=== PATIENT | female | born 1990 | race Caucasian/White ===

== ENCOUNTER 2020-04-01 20:36 | Emergency (ER) | payer SELFPAY ==
[2020-04-01 20:38] VITALS: BP 107/66; PULSE 95; RESP 20; TEMP 36.8; O2SAT 100; BMI 27.3
--- NOTE | 2020-04-01 20:41 | CTR_ITS ---
PROCEDURE INFORMATION: Exam: CT Head Without Contrast Exam date and time: 04/01/2020 8:41 PM Age: 30 years old Clinical indication: Alteration of consciousness and weakness, extremity and weakness, facial and other: Stroke symptons; Bilateral; Additional info: Stroke-like symptoms TECHNIQUE: Imaging protocol: Computed tomography of the head without contrast. Radiation optimization: All CT scans at this facility use at least one of these dose optimization techniques: automated exposure control; mA and/or kV adjustment per patient size (includes targeted exams where dose is matched to clinical indication); or iterative reconstruction. Other technique: STROKE PROTOCOL was implemented. COMPARISON: No relevant prior studies available. RADIATION DOSE METRICS: Total DLP (mGy-cm): 862.49 FINDINGS: Brain: There is a large right frontal acute hemorrhage. It measures 4.6 x 3.9 x 5.2 cm. This is a volume of 25 cc. There is surrounding edema. There is mass effect with 5 mm of midline shift. No extra-axial hematoma. No subarachnoid hemorrhage. No infarct. Cerebral ventricles: No ventriculomegaly. Bones/joints: Unremarkable. No acute fracture. Paranasal sinuses: There is near complete opacification of the right maxillary sinus. Mastoid air cells: Visualized mastoid air cells are well aerated. Soft tissues: Unremarkable. CT/CT head wo con* [id number] IMPRESSION: 4.6 x 3.9 x 5.2 cm acute right frontal hemorrhage with 5 mm of midline shift. ASSESSMENT: ASPECTS ([place] Stroke Program Early CT Score) is 10. Radiation Dose CTDIVOL = (mGy): DLP = 862.49 (mGy-cm)
--- NOTE | 2020-04-01 20:54 | PC.NURSE ---
EKG done at 2023 and shown to ER doctor. Blood glucose is 189, nurses and ER doc were notified
[2020-04-01 20:56] LABS: Glucose Point of Care 189 mg/dL (70-110)
--- NOTE | 2020-04-01 20:57 | XRR_ITS ---
PROCEDURE INFORMATION: Exam: XR Chest, 1 View Exam date and time: 04/01/2020 9:17 PM Age: 30 years old Clinical indication: Shortness of breath; Patient HX: AMS, LUNA, SOB, numbness on left hand/leg TECHNIQUE: Imaging protocol: XR of the chest Views: 1 view. COMPARISON: No relevant prior studies available. FINDINGS: Lungs: The lungs are clear bilaterally. Pulmonary vasculature within normal limits. Pleural space: No visible pneumothorax or pleural effusion. Heart/Mediastinum: Cardiomediastinal silhouette contour within normal limits. Bones/joints: No emergent findings identified. XR/XR chest 1V portable [id number] IMPRESSION: 1. No radiographic findings of acute cardiopulmonary disease.
--- NOTE | 2020-04-01 20:58 | ECG_ITS ---
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 Measurements Intervals [place] Rate: 82 P: 45 KS: 140 QRS: 29 QRSD: 98 T: 14 QT: 409 QTc: 479 Interpretive Statements SINUS RHYTHM No previous ECG available for comparison Electronically Signed On 04-02-2020 17:00:56 CDT by Pierce Wagner M.D. [id number]
[2020-04-01 21:04] VITALS: BP 120/73; PULSE 93; RESP 15; O2SAT 100
--- NOTE | 2020-04-01 21:14 | W.ED.NEUROSD ---
HPI - Neuro Symptoms/Deficit General: Chief Complaint: Neuro Symptoms/Deficit Stated Complaint: stroke Time Seen by Provider: 04/01/20 20:41 History of Present Illness: HPI Narrative: 30-year-old female presenting with a last known well time or somewhere around 1715. She presents with sudden onset of left-sided weakness, trouble with speech, slurring speech, and ataxia. She vomited as well. She is on no blood thinners. She does not have a previous history of stroke. Onset (ago): hour(s) Last Observed Normal: 17:15 Timing confirmed by: spouse Location: speech, left face, left arm, left leg and ataxia History of same: No Severity: moderate Quality: weak and numb Context: sudden onset On Anticoagulants: No Associated symptoms: Reports headache(s), nausea and vomiting; Deny chest pain or seizures Review of Systems Const: Denies: fever(s) or chills ENMT: Denies: odynophagia, swelling of lips/tongue or sinus pain Card: Denies: chest pain, palpitations or irregular heart rhythm Resp: Denies: dyspnea, productive cough, non-productive cough or wheezing GI: Reports: nausea and vomiting : Denies: dysuria or hematuria Musc: Denies: neck pain or back pain Skin/Breast: Denies: rash or erythema Neuro: Reports: headache(s) and dizziness; Denies: confusion or seizure-like activity Psych: Denies: anxiety Physical Exam Const: GENERAL APPEARANCE: well developed ORIENTATION/CONSCIOUSNESS: Yes oriented to person, Yes oriented to place and Yes oriented to time HENMT: COMMON NORMALS: external ears normal and Normal external nose present HEAD & SCALP: no scalp tenderness NOSE: Normal external nose present and No nasal discharge present EXTERNAL EAR: Yes external ears normal Eye: COMMON NORMALS: Equal, round and reactive pupils present, EOMs intact bilaterally and conjunctivae normal EYELID: eyelids normal CONJUNCTIVA: Yes conjunctivae normal PUPIL: Yes Equal, round and reactive pupils present Neck/C-Spine: GENERAL: No tracheal deviation Chest: COMMONS NORMALS: normal inspection of the chest CHEST: No tenderness Resp: COMMON NORMALS: clear to auscultation bilaterally EFFORT & INSPECTION: No tachypneic, No respiratory distress, No retractions, No uses accessory muscles and No tracheal deviation AUSCULTATION: clear to auscultation bilaterally, no rhonchi, no wheezes and lung sounds not diminished Cardio: COMMON NORMALS: regular rate and regular rhythm RATE: regular rate RHYTHM: regular rhythm HEART SOUNDS: no murmurs PERIPHERAL PULSES: radial pulses present GI: INSPECTION: No abdominal distension AUSCULTATION: No Hyperactive bowel sounds present and No Hypoactive bowel sounds present PALPATION: No Guarding due to palpation present (GI) and No Rigid due to palpation PERCUSSION: no dullness to percussion and no tympanic to percussion Neuro: SENSORIUM/ORIENTATION: Yes oriented to person, Yes oriented to place and Yes oriented to time SPEECH: abnormal speech Details: slurred and expressive aphasia GAIT: Yes Unable to assess gait SENSORY EXAM: Yes extremities (Left upper and lower extremity sensory loss.) MOTOR EXAM: Pronator motor function present (Left) Psych: COMMON NORMALS: mental status grossly normal Skin: COMMON NORMALS: no rashes or lesions noted GENERAL SKIN EXAM: no rashes or lesions noted Course Vital Signs: Vital signs: Vital Signs Temperature 98.2 F 04/01/20 20:38 Pulse Rate 79 04/01/20 21:58 Respiratory Rate 27 H 04/01/20 21:58 Blood Pressure 129/73 04/01/20 21:58 Pulse Oximetry 100 04/01/20 21:58 MDM - Neuro Symptoms/Deficit MDM Narrative: Medical decision making narrative: Patient presents with sudden onset of neurologic symptoms. She has no history of anticoagulation, or stroke prior. She has a large intracranial hemorrhage in the right frontal area with some midline shift. We have contacted both [facility] and [facility] in [place], who were not excepting any outside transfers. We next contacted [facility] and I spoke with neurosurgery there. We are awaiting to see if they have a bed available for this patient currently she is conscious and awake. He is answering questions still. Her blood pressure is 120/83, heart rate 80, saturations 100%, respirations 22. Lab Data: Labs: Lab Results 04/01/20 04/01/20 04/01/20 Range/Units 20:53 21:05 21:05 WBC 14.0 H (4.0-10.0) 10^3/ uL RBC 4.53 (4.1-5.3) 10^6/u L Hgb 12.8 (11.5-15.3) g/dL Hct 38.9 (37.0-47.0) % MCV 85.9 (81-99) fL MCH 28.3 (28.0-34.0) pg MCHC 32.9 (30.0-36.0) g/dL RDW 12.3 (12.1-15.1) % Plt Count 266 (130-400) 10^3/c mm MPV 11.6 H (7.4-10.4) fL Neut % (Auto) 75.1 % Lymph % (Auto) 17.8 % [place] % (Auto) 4.5 % Eos % (Auto) 1.8 % Baso % (Auto) 0.3 % Neut # (Auto) 10.54 H (1.8-7.7) 10^3/u L Lymph # (Auto) 2.5 (0.8-4.8) 10^3/u L [place] # (Auto) 0.6 (0.2-0.9) 10^3/u L Eos # (Auto) 0.3 (0.0-0.8) 10^3/u L Baso # (Auto) 0.0 (0.0-0.1) 10^3/u L Nucleated RBC % (a uto) 0 % Nucleated RBCs # 0.0 /100WBC PT 12.70 (12.1-14.9) SECO NDS INR 0.93 (0.8-1.2) APTT 29.1 (23.9-36.7) SECO NDS Sodium (136-145) mmol/L Potassium (3.5-5.1) mmol/L Chloride (98-107) mmol/L Carbon Dioxide (22-29) mmol/L Anion Gap (5-19) BUN (6-20) mg/dL Creatinine (0.5-0.9) mg/dL GFR Calculation (90-130) mL/min Glucose (65-115) mg/dL POC Glucose 189 (70-110) mg/dL Calculated Osmolal ity (285-295) mOsm/k g Calcium (8.5-10.5) mg/dL Total Bilirubin (0.15-1.2) mg/dL AST (0-32) U/L ALT (0-33) U/L Alkaline Phosphata se (35-105) IU/L Total Protein (6.6-8.7) g/dL Albumin (3.5-5.2) g/dL Globulin (1.3-4.6) g/dL 04/01/20 Range/Units 21:05 WBC (4.0-10.0) 10^3/ uL RBC (4.1-5.3) 10^6/u L Hgb (11.5-15.3) g/dL Hct (37.0-47.0) % MCV (81-99) fL MCH (28.0-34.0) pg MCHC (30.0-36.0) g/dL RDW (12.1-15.1) % Plt Count (130-400) 10^3/c mm MPV (7.4-10.4) fL Neut % (Auto) % Lymph % (Auto) % [place] % (Auto) % Eos % (Auto) % Baso % (Auto) % Neut # (Auto) (1.8-7.7) 10^3/u L Lymph # (Auto) (0.8-4.8) 10^3/u L [place] # (Auto) (0.2-0.9) 10^3/u L Eos # (Auto) (0.0-0.8) 10^3/u L Baso # (Auto) (0.0-0.1) 10^3/u L Nucleated RBC % (a uto) % Nucleated RBCs # /100WBC PT (12.1-14.9) SECO NDS INR (0.8-1.2) APTT (23.9-36.7) SECO NDS Sodium 137 (136-145) mmol/L Potassium 3.2 L (3.5-5.1) mmol/L Chloride 101 (98-107) mmol/L Carbon Dioxide 21 L (22-29) mmol/L Anion Gap 18.2 (5-19) BUN 15 (6-20) mg/dL Creatinine 0.7 (0.5-0.9) mg/dL GFR Calculation 97.6 (90-130) mL/min Glucose 200 H (65-115) mg/dL POC Glucose (70-110) mg/dL Calculated Osmolal ity 290 (285-295) mOsm/k g Calcium 9.2 (8.5-10.5) mg/dL Total Bilirubin 0.2 (0.15-1.2) mg/dL AST 18 (0-32) U/L ALT 17 (0-33) U/L Alkaline Phosphata se 79 (35-105) IU/L Total Protein 7.5 (6.6-8.7) g/dL Albumin 4.5 (3.5-5.2) g/dL Globulin 3.0 (1.3-4.6) g/dL Discharge Plan Discharge Patient Disposition: Xfer Other Clinical Impression: Hemorrhagic stroke Interventions: ED Discharge Assessment Last Done: 04/01/20 21:58 ED Charges Last Done: 04/01/20 21:58 Discharge Date/Time: 04/01/20 22:04 Coding Level of Care Code ED Orthopedic Brace Maker for Antonia Fwd Exam Comprehensive
[2020-04-01 21:24] LABS: Basophils % 0.3 %; Eosinophils # 0.3 10^3/uL (0.0-0.8); Eosinophils % 1.8 %; Hematocrit 38.9 % (37.0-47.0); Hemoglobin 12.8 g/dL (11.5-15.3); Lymphocytes # 2.5 10^3/uL (0.8-4.8); Lymphocytes % 17.8 %; Mean Corpuscular HGB Conc 32.9 g/dL (30.0-36.0); Mean Corpuscular Hemoglobin 28.3 pg (28.0-34.0); Mean Corpuscular Volume 85.9 fL (81-99); Mean Platelet Volume 11.6 fL (7.4-10.4); Monocytes # 0.6 10^3/uL (0.2-0.9); Monocytes % 4.5 %; Neutrophils # 10.54 10^3/uL (1.8-7.7); Neutrophils % 75.1 %; Nucleated Red Blood Cells % 0 %; Platelet Count 266 10^3/cmm (130-400); Red Blood Count 4.53 10^6/uL (4.1-5.3); Red Cell Distribution Width 12.3 % (12.1-15.1)
[2020-04-01 21:30] LABS: INR 0.93 (0.8-1.2); Partial Thromboplastin Time 29.1 SECONDS (23.9-36.7)
[2020-04-01 21:31] VITALS: BP 129/73; PULSE 79; RESP 27; O2SAT 100
[2020-04-01 21:37] LABS: Alanine Aminotransferase 17 U/L (0-33); Albumin Level 4.5 g/dL (3.5-5.2); Alkaline Phosphatase 79 IU/L (35-105); Anion Gap 18.2 (5-19); Aspartate Amino Transferase 18 U/L (0-32); Blood Urea Nitrogen 15 mg/dL (6-20); Calcium 9.2 mg/dL (8.5-10.5); Carbon Dioxide 21 mmol/L (22-29); Chloride 101 mmol/L (98-107); Glomerular Filtration Rate 97.6 mL/min (90-130); Glucose 200 mg/dL (65-115); Osmolality Calculated 290 mOsm/kg (285-295); Potassium 3.2 mmol/L (3.5-5.1); Sodium 137 mmol/L (136-145); Total Bilirubin 0.2 mg/dL (0.15-1.2); Total Protein 7.5 g/dL (6.6-8.7)
[2020-04-01 21:58] VITALS: BP 129/73; PULSE 79; RESP 27; O2SAT 100
== END 2020-04-01 22:04 | disposition other institution (70) ==
LOC: ER 20:54
PROVIDERS: Family Medicine; Emergency Provider Emergency Medicine
DX: I62.9 Nontraumatic intracranial hemorrhage, unspecified (principal)
CPT/HCPCS: 12345; 36416; 51702; 70450; 71045; 80053; 82962; 85025; 85610; 85730; 93005; 99283; 99285

== ENCOUNTER 2020-04-14 20:40 | Emergency (ER) | payer MEDICAID, SELFPAY ==
[2020-04-14 20:45] VITALS: BP 141/96; PULSE 113; RESP 18; O2SAT 98; BMI 26.4
--- NOTE | 2020-04-14 20:45 | CTR_ITS ---
PROCEDURE INFORMATION: Exam: CT Head Without Contrast Exam date and time: 04/14/2020 8:46 PM Age: 30 years old Clinical indication: Pain; Headache; Prior surgery TECHNIQUE: Imaging protocol: Computed tomography of the head without contrast. Radiation optimization: All CT scans at this facility use at least one of these dose optimization techniques: automated exposure control; mA and/or kV adjustment per patient size (includes targeted exams where dose is matched to clinical indication); or iterative reconstruction. COMPARISON: CT head wo con* [id number] 04/01/2020 8:33 PM RADIATION DOSE METRICS: Total DLP (mGy-cm): 1366.9 FINDINGS: Brain: The previously identified parenchymal hemorrhage centered within the right parietal lobe has been partially evacuated and measures 2.3 x 4.5 x 2.5 cm. Severe vasogenic edema in the right parietal, posterior frontal, and superior temporal lobe, surrounding the hemorrhage, is not significantly changed. Persistent right sulcal effacement. 5 mm right to left subfalcine shift. No tonsillar herniation. Small subdural fluid collection along the craniotomy defect measuring up to 3.5 mm. Cerebral ventricles: No ventriculomegaly. Bones/joints: Right parietal craniotomy defect with plates and screws. Paranasal sinuses: Opacification of the right maxillary sinus. Otherwise clear. Mastoid air cells: Visualized mastoid air cells are well aerated. Soft tissues: Unremarkable. CT/CT head wo con* [id number] IMPRESSION: 1. Interval craniotomy with partial evacuation of the right parietal lobe parenchymal hemorrhage. No evidence to suggest acute rehemorrhage. 2. Persistent vasogenic edema surrounding the hemorrhage which contributes to right hemispheric sulcal effacement and 5 mm right to left subfalcine shift. 3. Small subdural fluid collection along the right craniotomy defect measuring 3.5 mm in thickness. Radiation Dose CTDIVOL = (mGy): DLP = 1366.9 (mGy-cm)
--- NOTE | 2020-04-14 20:51 | PC.NURSE ---
patient taken directly to CT scan
--- NOTE | 2020-04-14 20:53 | ED_ITS ---
HPI - General Adult General: Chief complaint: Neuro Symptoms/Deficit Stated complaint: poss stroke Time Seen by Provider: 04/14/20 20:45 Source: patient and family Mode of arrival: wheelchair Limitations: no limitations History of Present Illness: HPI narrative: Dee Dee is a 30-year-old female who comes in complaining of left arm numbness, slurred speech and a severe headache. Patient is in significant discomfort and most of history is obtained from her . He states that approximately 515 she had a headache that started gradually and has become progressively worse. Shortly after the headache started she described left hand and arm numbness and he noticed slurred speech. The patient then became nauseated and dizzy and has vomited. He gave her Tylenol for her headache and her nighttime seizure medications but this was vomited up as well. Of note the patient had an intraparenchymal brain hemorrhage at the end of March and was treated and cared for with dec ompression surgery at the [facility]. Here the patient has a GCS of 13 but does follow commands. Associated symptoms: Reports headache(s), nausea and vomiting; Deny chest pain, confusion, diaphoresis, dyspnea, malaise, rash, palpitations or syncope Review of Systems Const: Denies: fever(s), chills, body aches, fatigue, malaise or diaphoresis Eyes: Denies: change in vision, blurry vision, photophobia, eye discomfort, eye discharge, eye redness or yellow eyes ENMT: Denies: throat pain, odynophagia, hoarseness, swelling of lips/tongue, ear or mastoid pain, ear discharge, change in hearing or nasal discharge Card: Denies: chest pain, palpitations, irregular heart rhythm, edema, lightheadedness, syncope, pre-syncope, dyspnea on exertion or orthopnea Resp: Denies: dyspnea, productive cough, non-productive cough, wheezing, hemoptysis or chest congestion GI: Reports: nausea and vomiting; Denies: abdominal pain, hematemesis, coffee ground emesis, heartburn, diarrhea, constipation, GI cramping, hematochezia or melena : Denies: flank pain, dysuria, urinary frequency, urinary urgency or hematuria Musc: Denies: neck pain, back pain, extremity pain, extremity swelling, joint pain, joint swelling, joint redness, joint warmth or joint stiffness Skin/Breast: Denies: rash, pruritus, erythema, skin pain or skin tenderness Neuro: Reports: headache(s) and dizziness; Denies: numbness in extremities, weakness in extremities, sensory changes, lack of coordination, difficulty walking, vertigo, confusion, Slurred speech present or seizure-like activity David/Lymph: Denies: easy bruising, easy bleeding, petechiae, purpura or enlarged lymph nodes All/Imm: Denies: urticaria, throat swelling, tongue swelling, facial swelling or acute wheezing PFSH ED PFSH: Medical History (Updated 04/14/20 @ 21:16 by Heather Zurita) Intracranial hemorrhage Surgical History (Updated 04/14/20 @ 21:15 by Heather Zurita) S/P brain surgery Social History (Updated 04/14/20 @ 21:15 by Heather Zurita) Smoking and tobacco status: never smoked Alcohol intake: never Substance/Drug Use: never Female Reproductive History: Date of last menstrual period: 03/30/20 Physical Exam Const: COMMON NORMALS: patient oriented x3 and alert GENERAL APPEARANCE: cooperative and in distress (Appears a secondary to pain) HENMT: COMMON NORMALS: normocephalic, atraumatic, external ears normal, EAC's normal and Normal external nose present HEAD & SCALP: normal to inspection, normocephalic and atraumatic FACE & SINUS: normal facial exam and face symmetric NOSE: Normal external nose present and Normal nares present EXTERNAL EAR: Yes external ears normal EXTERNAL AUDITORY CANAL: EAC's normal MOUTH: Normal oral and palatal mucosa present, lip normal and tongue normal Eye: COMMON NORMALS: Equal, round and reactive pupils present and conjunctivae normal GENERAL EYE: appearance normal, both eyes and all related structures ALIGNMENT: Yes alignment normal PERIORBITAL: periorbital findings normal EYELID: eyelids normal CONJUNCTIVA: Yes conjunctivae normal SCLERA: sclerae normal PUPIL: Yes Equal, round and reactive pupils present Neck/C-Spine: COMMON NORMALS: full ROM, no lymphadenopathy, supple, no meningeal signs and no JVD GENERAL: Yes normal visual inspection and Yes trachea midline Chest: COMMONS NORMALS: normal inspection of the chest and normal palpation of entire chest wall Resp: COMMON NORMALS: normal respiratory effort, No retractions, No use of accessory muscles and clear to auscultation bilaterally EFFORT & INSPECTION: Yes able to speak in complete sentences and Yes symmetric chest movement AUSCULTATION: clear to auscultation bilaterally, no crackles, no rales, no rhonchi and no wheezes Cardio: COMMON NORMALS: no JVD, regular rate, regular rhythm, S1 normal heart sound present and S2 normal heart sound present RATE: regular rate RHYTHM: regular rhythm HEART SOUNDS: S1 normal heart sound present, S2 normal heart sound present, no click, no gallops, no murmurs and no rubs GI: COMMON NORMALS: Soft to palpation and No hepatosplenomegaly present PALPATION: Yes Soft to palpation, No Tenderness to palpation present (GI), No Guarding due to palpation present (GI), No Rigid due to palpation, Yes No hepatosplenomegaly present, No Hernia present, No Palpable mass present and No Pulsatile mass present : COMMON NORMALS: Yes no CVA tenderness BLADDER/KIDNEY EXAM: Yes no CVA tenderness EXTERNAL FEMALE EXAM: No Hernia present Back/Pelvis: COMMON NORMALS: no CVA tenderness, thoracic and lumbar spine normal to inspection, no thoracic nor lumbar tenderness and thoraco-lumbar ROM normal Extremity: COMMON NORMALS: normal to inspection, full ROM, capillary refill normal, no joint enlargement, no clubbing, cyanosis or edema and no calf tenderness Neuro: HEENA COMA SCALE: document GCS findings [place] coma scale eye opening: To sound Heena coma scale verbal response: Confused Heena coma scale motor response: Obey commands Heena coma scale total score: 13 COMMON NORMALS: patient oriented x3, CN's II-XII intact bilaterally, moves all extremities, no focal motor deficits and no sensory deficits noted SENSORIUM/ORIENTATION: Yes alert MENINGEAL SIGNS: Yes no meningeal signs SPEECH: speech normal Psych: COMMON NORMALS: mental status grossly normal, Normal thought process present, cooperative, normal affect, speech normal and activity/motor behavior normal SPEECH: Yes normal speech THOUGHT PROCESS: Normal thought process present Skin: COMMON NORMALS: no rashes or lesions noted, turgor normal, no jaundice, no petechiae and no mottling GENERAL SKIN EXAM: no rashes or lesions noted and turgor normal Course Vital Signs: Vital signs: Vital Signs Pulse Rate 65 04/14/20 22:08 Respiratory Rate 18 04/14/20 22:08 Blood Pressure 137/79 04/14/20 22:08 Pulse Oximetry 100 04/14/20 22:08 MDM - General Adult MDM Narrative: Medical decision making narrative: 2107 -Case reviewed with Dr. Davis at the [facility]. She understands that the blood seen on CT could be old blood from her previous stroke but with the patient's left-sided numbness and slurred speech along with the severe headache and vomiting she agrees that she needs to be evaluated. The plan there will be to rescan her and compared to their old imaging but likely admit for observation for pain control and further evaluation and care. I have offered to the family to transfer the patient to [place] at this time I do believe Miguel and Chrystal are on diversion but when this was offered the family declines and wants to go to the [facility] as they were previously treated there. They understand and accept the risks of a longer transport time. Currently [facility] is in route to come shrimp picker the patient. Patient's vital signs are stable and appropriate for intracranial hemorrhage. 2132 - [facility] [place] [facility] [place] [facility]. Patient's official CT read is that of possible subdural along with some vasogenic edema. I have given the patient a dose of Decadron here. There is mild shift. Currently the patient remains a GCS of 13-14. She still has good equal extremity movements. 2139 -Dr. Davis notified of the head CT results. She would like to proceed with the same plan and have the patient shipped to her for further evaluation. Lab Data: Labs: Lab Results 04/14/20 04/14/20 04/14/20 Range/Units 21:07 21:16 21:16 WBC 10.1 H (4.0-10.0) 10^3/ uL RBC 4.02 L (4.1-5.3) 10^6/u L Hgb 11.2 L (11.5-15.3) g/dL Hct 34.7 L (37.0-47.0) % MCV 86.3 (81-99) fL MCH 27.9 L (28.0-34.0) pg MCHC 32.3 (30.0-36.0) g/dL RDW 12.6 (12.1-15.1) % Plt Count 254 (130-400) 10^3/c mm MPV 12.1 H (7.4-10.4) fL Neut % (Auto) 85.8 % Lymph % (Auto) 9.5 % [place] % (Auto) 3.9 % Eos % (Auto) 0.1 % Baso % (Auto) 0.3 % Neut # (Auto) 8.63 H (1.8-7.7) 10^3/u L Lymph # (Auto) 1.0 (0.8-4.8) 10^3/u L [place] # (Auto) 0.4 (0.2-0.9) 10^3/u L Eos # (Auto) 0.0 (0.0-0.8) 10^3/u L Baso # (Auto) 0.0 (0.0-0.1) 10^3/u L Nucleated RBC % (a uto) 0 % Nucleated RBCs # 0.0 /100WBC PT 13.50 (12.1-14.9) SECO NDS INR 1.00 (0.8-1.2) APTT 37.2 H (23.9-36.7) SECO NDS Sodium (136-145) mmol/L Potassium (3.5-5.1) mmol/L Chloride (98-107) mmol/L Carbon Dioxide (22-29) mmol/L Anion Gap (5-19) BUN (6-20) mg/dL Creatinine (0.5-0.9) mg/dL GFR Calculation (90-130) mL/min Glucose (65-115) mg/dL Calculated Osmolal ity (285-295) mOsm/k g Calcium (8.5-10.5) mg/dL Magnesium (1.7-2.3) mg/dL Total Bilirubin (0.15-1.2) mg/dL AST (0-32) U/L ALT (0-33) U/L Alkaline Phosphata se (35-105) IU/L Creatine Kinase (26-192) U/L Total Protein (6.6-8.7) g/dL Albumin (3.5-5.2) g/dL Globulin (1.3-4.6) g/dL HCG, Qual (Negative) SARS-CoV-2 Ag (Rap id) Negative (Negative) 04/14/20 04/14/20 Range/Units 21:16 21:16 WBC (4.0-10.0) 10^3/ uL RBC (4.1-5.3) 10^6/u L Hgb (11.5-15.3) g/dL Hct (37.0-47.0) % MCV (81-99) fL MCH (28.0-34.0) pg MCHC (30.0-36.0) g/dL RDW (12.1-15.1) % Plt Count (130-400) 10^3/c mm MPV (7.4-10.4) fL Neut % (Auto) % Lymph % (Auto) % [place] % (Auto) % Eos % (Auto) % Baso % (Auto) % Neut # (Auto) (1.8-7.7) 10^3/u L Lymph # (Auto) (0.8-4.8) 10^3/u L [place] # (Auto) (0.2-0.9) 10^3/u L Eos # (Auto) (0.0-0.8) 10^3/u L Baso # (Auto) (0.0-0.1) 10^3/u L Nucleated RBC % (a uto) % Nucleated RBCs # /100WBC PT (12.1-14.9) SECO NDS INR (0.8-1.2) APTT (23.9-36.7) SECO NDS Sodium 137 (136-145) mmol/L Potassium 4.2 (3.5-5.1) mmol/L Chloride 102 (98-107) mmol/L Carbon Dioxide 18 L (22-29) mmol/L Anion Gap 21.2 H (5-19) BUN 13 (6-20) mg/dL Creatinine 0.7 (0.5-0.9) mg/dL GFR Calculation 97.6 (90-130) mL/min Glucose 166 H (65-115) mg/dL Calculated Osmolal ity 288 (285-295) mOsm/k g Calcium 9.7 (8.5-10.5) mg/dL Magnesium 1.8 (1.7-2.3) mg/dL Total Bilirubin 0.3 (0.15-1.2) mg/dL AST 13 (0-32) U/L ALT 13 (0-33) U/L Alkaline Phosphata se 104 (35-105) IU/L Creatine Kinase 37 (26-192) U/L Total Protein 8.0 (6.6-8.7) g/dL Albumin 4.2 (3.5-5.2) g/dL Globulin 3.8 (1.3-4.6) g/dL HCG, Qual Negative (Negative) SARS-CoV-2 Ag (Rap id) (Negative) Imaging Data^: CT Head: Radiologist's impression: [address] [address] [address] Scan Report Signed Patient: Celeste Hall #: [id number] : 1990Acct#:[id number] Age/Sex: Date: [birth year] Loc: ERRoom/Bed: Attending Dr: Ordering Provider/Ordering MD: Heather Zurita DO Date of Service: 04/14/20 Procedure(s): CT head wo con* [id number] Accession Number(s): [id number] Report Number: [id number] PROCEDURE INFORMATION: Exam: CT Head Without Contrast Exam date and time: 04/14/2020 8:46 PM Age: 30 years old Clinical indication: Pain; Headache; Prior surgery TECHNIQUE: Imaging protocol: Computed tomography of the head without contrast. Radiation optimization: All CT scans at this facility use at least one of these dose optimization techniques: automated exposure control; mA and/or kV adjustment per patient size (includes targeted exams where dose is matched to clinical indication); or iterative reconstruction. COMPARISON: CT head wo con* [id number] 04/01/2020 8:33 PM RADIATION DOSE METRICS: Total DLP (mGy-cm): 1366.9 FINDINGS: Brain: The previously identified parenchymal hemorrhage centered within the right parietal lobe has been partially evacuated and measures 2.3 x 4.5 x 2.5 cm. Severe vasogenic edema in the right parietal, posterior frontal, and superior temporal lobe, surrounding the hemorrhage, is not significantly changed. Persistent right sulcal effacement. 5 mm right to left subfalcine shift. No tonsillar herniation. Small subdural fluid collection along the craniotomy defect measuring up to 3.5 mm. Cerebral ventricles: No ventriculomegaly. Bones/joints: Right parietal craniotomy defect with plates and screws. Paranasal sinuses: Opacification of the right maxillary sinus. Otherwise clear. Mastoid air cells: Visualized mastoid air cells are well aerated. Soft tissues: Unremarkable. CT/CT head wo con* [id number] IMPRESSION: 1. Interval craniotomy with partial evacuation of the right parietal lobe parenchymal hemorrhage. No evidence to suggest acute rehemorrhage. 2. Persistent vasogenic edema surrounding the hemorrhage which contributes to right hemispheric sulcal effacement and 5 mm right to left subfalcine shift. 3. Small subdural fluid collection along the right craniotomy defect measuring 3.5 mm in thickness. Radiation Dose CTDIVOL = (mGy): DLP = 1366.9 (mGy-cm) Dictated By:Viet Borden Signed By:Viet BordenSignmelanie Date/Time:04/14/202129 DD/ 28 Critical Care Time Critical Care Time: Critical Care Time: Yes Total Critical Care Time: 30 Attestation: Critical care time consisted of evaluation of patient's radiologic studies. Critical care time consisted of reevaluation of the patient's mental status as well as arranging for transport. Her care time consisted of reviewing laboratory values and arranging for transport. Discharge Plan Discharge Patient Disposition: Xfer Short-Term Hosp Clinical Impression: Intracranial hemorrhage Condition: Stable Discharge Date/Time: 04/14/20 21:42 Coding Level of Care Code ED Global Marketing Specialist for Antonia Moncada Exam Comprehensive
--- NOTE | 2020-04-14 21:01 | PC.NURSE ---
call placed to transfer center; Dr. Zurita on phone with them now.
[2020-04-14 21:15] VITALS: BP 119/71; PULSE 88; RESP 17; O2SAT 100
[2020-04-14 21:22] VITALS: BP 121/73; PULSE 81; RESP 22; O2SAT 100
[2020-04-14 21:28] LABS: Basophils % 0.3 %; Eosinophils % 0.1 %; Hematocrit 34.7 % (37.0-47.0); Hemoglobin 11.2 g/dL (11.5-15.3); Lymphocytes % 9.5 %; Mean Corpuscular HGB Conc 32.3 g/dL (30.0-36.0); Mean Corpuscular Hemoglobin 27.9 pg (28.0-34.0); Mean Corpuscular Volume 86.3 fL (81-99); Mean Platelet Volume 12.1 fL (7.4-10.4); Monocytes # 0.4 10^3/uL (0.2-0.9); Monocytes % 3.9 %; Neutrophils # 8.63 10^3/uL (1.8-7.7); Neutrophils % 85.8 %; Nucleated Red Blood Cells % 0 %; Platelet Count 254 10^3/cmm (130-400); Red Blood Count 4.02 10^6/uL (4.1-5.3); Red Cell Distribution Width 12.6 % (12.1-15.1); White Blood Count 10.1 10^3/uL (4.0-10.0)
[2020-04-14 21:30] VITALS: BP 137/79; PULSE 65; RESP 18; O2SAT 100
[2020-04-14 21:44] LABS: HCG, Serum Qual Negative (Negative)
[2020-04-14 21:45] LABS: Partial Thromboplastin Time 37.2 SECONDS (23.9-36.7)
[2020-04-14 21:46] LABS: Alanine Aminotransferase 13 U/L (0-33); Albumin Level 4.2 g/dL (3.5-5.2); Alkaline Phosphatase 104 IU/L (35-105); Anion Gap 21.2 (5-19); Aspartate Amino Transferase 13 U/L (0-32); Blood Urea Nitrogen 13 mg/dL (6-20); Calcium 9.7 mg/dL (8.5-10.5); Carbon Dioxide 18 mmol/L (22-29); Chloride 102 mmol/L (98-107); Creatine Phosphokinase 37 U/L (26-192); Globulin 3.8 g/dL (1.3-4.6); Glomerular Filtration Rate 97.6 mL/min (90-130); Glucose 166 mg/dL (65-115); Magnesium 1.8 mg/dL (1.7-2.3); Osmolality Calculated 288 mOsm/kg (285-295); Potassium 4.2 mmol/L (3.5-5.1); Sodium 137 mmol/L (136-145); Total Bilirubin 0.3 mg/dL (0.15-1.2)
[2020-04-14 21:49] LABS: SARS Covid-2 Antigen Negative (Negative)
--- NOTE | 2020-04-14 21:57 | PC.NURSE ---
accucheck 127
--- NOTE | 2020-04-14 22:06 | PC.NURSE ---
assessment reviewed and agreed with
[2020-04-14 22:08] VITALS: BP 137/79; PULSE 65; RESP 18; O2SAT 100
[2020-04-15 01:05] LABS: Glucose Point of Care 129 mg/dL (70-110)
== END 2020-04-14 21:42 | disposition short-term general hospital (02) ==
PROVIDERS: Emergency Provider Emergency Medicine
DX: I62.9 Nontraumatic intracranial hemorrhage, unspecified (principal)
CPT/HCPCS: 12345; 36416; 70450; 80053; 82550; 82962; 83735; 84703; 85025; 85610; 85730; 87426; 96361; 96374; 96375; 99282; 99285

== ENCOUNTER → 2020-11-23 12:02 | Outpatient (BNVA) | payer MEDICAID, SELFPAY | PROVIDERS: Visit Provider Radiology Vascular & Interventional Radiology | DX: Z01.812 Encounter for preprocedural laboratory examination (principal); Z20.822 Contact with and (suspected) exposure to COVID-19 | CPT/HCPCS: 87635 ==

== ENCOUNTER 2020-12-07 22:54 | Emergency (ER) | payer BC, MEDICAID, SELFPAY ==
[2020-12-07 22:54] VITALS: BP 136/75; PULSE 111; RESP 16; O2SAT 100; BMI 29.2
[2020-12-07 23:04] VITALS: RESP 18
--- NOTE | 2020-12-07 23:22 | CTR_ITS ---
PROCEDURE INFORMATION: Exam: CT Angiography Head With Contrast, Arteriography Exam date and time: 12/07/2020 11:25 PM Age: 30 years old Clinical indication: Other: Seizure. ; Prior surgery; Surgery type: Rebecca hole surgery; Patient HX: Seizure with headache. History of stroke in 2019. TECHNIQUE: Imaging protocol: Computed tomography angiography of the head with contrast. Exam focused on the arteries. 3D rendering (Not supervised by radiologist): MIP and/or 3D reconstructed images were created by the technologist. Radiation optimization: All CT scans at this facility use at least one of these dose optimization techniques: automated exposure control; mA and/or kV adjustment per patient size (includes targeted exams where dose is matched to clinical indication); or iterative reconstruction. Contrast material: OMNI 350; Contrast volume: 95 ml; Contrast route: INTRAVENOUS (IV); COMPARISON: 1. CT head wo con* [id number] 2020-12-07 23:[address] head wo con* [id number] 2020-04-14 20:45 RADIATION DOSE METRICS: Total DLP (mGy-cm): 1262.85 FINDINGS: ANTERIOR CIRCULATION: Right internal carotid artery: Question mild narrowing of the right petrous ICA. Right middle cerebral artery: Small caliber right MCA. Right anterior cerebral artery: Hypoplastic right IJEOMA A1 segment. Small caliber right IJEOMA. Anterior communicating artery: Moderate anterior communicating artery. Left internal carotid artery: Unremarkable. Intracranial segment is patent with no significant stenosis. No aneurysm. Left middle cerebral artery: Unremarkable. No occlusion or significant stenosis. No aneurysm. Left anterior cerebral artery: Unremarkable. No occlusion or significant stenosis. No aneurysm. POSTERIOR CIRCULATION: Right vertebral artery: Unremarkable. No occlusion or significant stenosis. No aneurysm. Left vertebral artery: Unremarkable. No occlusion or significant stenosis. No aneurysm. Basilar artery: Persistent left trigeminal artery. Right posterior cerebral artery: Patent right CONSERVATION ASSISTANT. Left posterior cerebral artery: Patent left CONSERVATION ASSISTANT. Veins: The visualized deep and superficial dural venous sinuses and cortical veins are patent. Brain: Unchanged low attenuation in the right parietal lobe frontal region. Cerebral ventricles: No ventriculomegaly. Bones/joints: Previous right parietal craniotomy. Soft tissues: Unremarkable. Paranasal sinuses: Right maxillary sinus large mucous retention cyst. IMPRESSION: Small caliber right MCA. Small caliber right IJEOMA. Question mild narrowing of the right petrous ICA. Correlate for the possibility of vasospasm or vasculitis. PROCEDURE INFORMATION: Exam: CT Angiography Neck With Contrast Exam date and time: 12/07/2020 11:25 PM Age: 30 years old Clinical indication: Other: Seizure. ; Prior surgery; Surgery type: Crystal hole surgery; Patient HX: Seizure with headache. History of stroke in 2019. TECHNIQUE: Imaging protocol: Computed tomography angiography of the neck with contrast. 3D rendering (Not supervised by radiologist): MIP and/or 3D reconstructed images were created by the technologist. Radiation optimization: All CT scans at this facility use at least one of these dose optimization techniques: automated exposure control; mA and/or kV adjustment per patient size (includes targeted exams where dose is matched to clinical indication); or iterative reconstruction. Contrast material: OMNI 350; Contrast volume: 95 ml; Contrast route: INTRAVENOUS (IV); COMPARISON: 1. CT head wo con* [id number] 2020-12-07 23:[address] head wo con* [id number] 2020-04-14 20:45 RADIATION DOSE METRICS: Total DLP (mGy-cm): 1262.85 FINDINGS: Right common carotid artery: No stenosis. No dissection or occlusion. Right internal carotid artery: No stenosis of the extracranial segment. No dissection or occlusion. Right external carotid artery: No occlusion or stenosis of the origin. Left common carotid artery: No stenosis. No dissection or occlusion. Left internal carotid artery: No stenosis of the extracranial segment. No dissection or occlusion. Left external carotid artery: No occlusion or stenosis of the origin. Right vertebral artery: No stenosis. No dissection or occlusion. Left vertebral artery: No stenosis. No dissection or occlusion. Soft tissues: Normal. No significant soft tissue swelling. Bones/joints: No acute fracture. CT/CT angio headneck* [id number] IMPRESSION: No stenosis or occlusion. REFERENCES: NASCET CRITERIA. The degree of internal carotid artery stenosis is based on NASCET criteria. Normal is no stenosis. Mild is less than 50% stenosis. Moderate is 50-69% stenosis. Severe is 70% to 99% stenosis. Total occlusion is no detectable patent lumen. Radiation Dose CTDIVOL = (mGy): DLP = 1262.85~1262.85 (mGy-cm)
--- NOTE | 2020-12-07 23:22 | CTR_ITS ---
PROCEDURE INFORMATION: Exam: CT Head Without Contrast Exam date and time: 12/07/2020 11:25 PM Age: 30 years old Clinical indication: Other: Seizure. ; Prior surgery; Surgery type: Rebecca hole surgery. ; Patient HX: Seizure with LUNA. History of stroke in 2019. TECHNIQUE: Imaging protocol: Computed tomography of the head without contrast. Radiation optimization: All CT scans at this facility use at least one of these dose optimization techniques: automated exposure control; mA and/or kV adjustment per patient size (includes targeted exams where dose is matched to clinical indication); or iterative reconstruction. COMPARISON: 1. CT head wo con* [id number] 2020-04-14 20:[address] head wo con* [id number] 2020-04-01 20:33 RADIATION DOSE METRICS: Total DLP (mGy-cm): 778.64 FINDINGS: Brain: Unchanged right parietal encephalomalacia. Cerebral ventricles: No ventriculomegaly. Paranasal sinuses: Large right maxillary sinus mucous retention cyst. Mastoid air cells: Visualized mastoid air cells are well aerated. Bones/joints: Right parietal craniotomy. Soft tissues: Unremarkable. CT/CT head wo con* [id number] IMPRESSION: 1. No interval change. 2. Unchanged right parietal encephalomalacia. Radiation Dose CTDIVOL = (mGy): DLP = 778.64 (mGy-cm)
--- NOTE | 2020-12-07 23:24 | W.ED.SEIZURE ---
HPI - Seizure General: Chief Complaint: Seizure Stated Complaint: SEIZURE Time Seen by Provider: 12/07/20 23:19 Source: patient Mode of arrival: ambulatory Limitations: no limitations History of Present Illness: HPI Narrative: 30-year-old female has a history of hemorrhagic stroke in March. She had seizures since then but that stopped her Keppra 1 month ago. She states that tonight about 930. Feel funny and has been states she had a seizure lasted roughly 2 to 3 minutes. She did have a postictal period. She also states she has had slight headache as well she rates a 2 out of 10. Denies any worsening improving factors. Seizure History: No Place: Home Associated symptoms: Deny chest pain, chills or fever(s) Review of Systems Const: Denies: fever(s), chills, body aches or change in appetite Eyes: Denies: blurry vision or eye discomfort ENMT: Denies: throat pain or dental pain Card: Denies: chest pain Resp: Denies: dyspnea GI: Denies: abdominal pain, nausea, vomiting or diarrhea : Denies: dysuria Musc: Denies: neck pain or back pain Skin/Breast: Denies: rash Neuro: Reports: seizure-like activity Psych: Denies: depression David/Lymph: Denies: easy bruising All/Imm: Denies: urticaria PFSH ED PFSH: Medical History (Updated 12/08/20 @ 00:42 by Mason Roach MD) Intracranial hemorrhage Surgical History (Updated 04/14/20 @ 21:15 by Heather Zurita) S/P brain surgery Social History (Updated 04/14/20 @ 21:15 by Heather Zurita) Smoking and tobacco status: never smoked Alcohol intake: never Female Reproductive History: Date of last menstrual period: 03/30/20 Physical Exam Const: COMMON NORMALS: no acute distress, patient oriented x3, healthy appearing and alert ORIENTATION/CONSCIOUSNESS: Yes oriented to person, Yes oriented to place and Yes oriented to time HENMT: COMMON NORMALS: normocephalic and atraumatic HEAD & SCALP: normocephalic and atraumatic Eye: COMMON NORMALS: Equal, round and reactive pupils present and EOMs intact bilaterally PUPIL: Yes Equal, round and reactive pupils present Neck/C-Spine: COMMON NORMALS: full ROM and supple Chest: COMMONS NORMALS: normal inspection of the chest and normal palpation of entire chest wall Resp: COMMON NORMALS: normal respiratory effort, No retractions, No use of accessory muscles and clear to auscultation bilaterally AUSCULTATION: clear to auscultation bilaterally Cardio: COMMON NORMALS: regular rate, regular rhythm and No murmurs present (Cardio) RATE: regular rate RHYTHM: regular rhythm GI: COMMON NORMALS: Normal to inspection, nondistended, normoactive bowel sounds present, Soft to palpation, non-tender and no masses PALPATION: Yes Soft to palpation Extremity: COMMON NORMALS: normal to inspection and full ROM Neuro: COMMON NORMALS: patient oriented x3, moves all extremities and no focal motor deficits SENSORIUM/ORIENTATION: Yes alert, Yes oriented to person, Yes oriented to place and Yes oriented to time CRANIAL NERVES: Yes CN normal except as noted SPEECH: speech normal MOTOR EXAM: 5/5 motor strength present throughout Psych: COMMON NORMALS: mental status grossly normal, Normal thought process present and cooperative THOUGHT PROCESS: Normal thought process present Skin: COMMON NORMALS: no rashes or lesions noted and no wounds GENERAL SKIN EXAM: no rashes or lesions noted Course Vital Signs: Vital signs: Vital Signs Pulse Rate 111 H 12/07/20 22:54 Respiratory Rate 18 12/08/20 00:35 Blood Pressure 136/75 12/07/20 22:54 Pulse Oximetry 99 12/08/20 00:35 MDM - Seizure MDM Narrative: Medical decision making narrative: Patient presents here with a seizure does have a mild headache. She has no signs of a hemorrhagic stroke here or aneurysm. I see no signs of vasculitis on exam. She has no tenderness over temporal arteries. Her headache here is mild and frontal in nature. She feels improved here. We will restart her on Keppra and she is stable for discharge. She is to follow-up with PCP in 1 to 2 days and return if worsening. Lab Data: Labs: Lab Results 12/07/20 12/07/20 12/07/20 Range/Units 22:05 22:05 22:05 WBC 9.3 (4.0-10.0) 10^3/ uL RBC 4.52 (4.1-5.3) 10^6/u L Hgb 12.6 (11.5-15.3) g/dL Hct 38.6 (37.0-47.0) % MCV 85.4 (81-99) fL MCH 27.9 L (28.0-34.0) pg MCHC 32.6 (30.0-36.0) g/dL RDW 12.2 (12.1-15.1) % Plt Count 245 (130-400) 10^3/c mm MPV 12.1 H (7.4-10.4) fL Neut % (Auto) 63.2 % Lymph % (Auto) 26.3 % Taylor % (Auto) 5.7 % Eos % (Auto) 4.1 % Baso % (Auto) 0.3 % Neut # (Auto) 5.84 (1.8-7.7) 10^3/u L Lymph # (Auto) 2.4 (0.8-4.8) 10^3/u L Taylor # (Auto) 0.5 (0.2-0.9) 10^3/u L Eos # (Auto) 0.4 (0.0-0.8) 10^3/u L Baso # (Auto) 0.0 (0.0-0.1) 10^3/u L Nucleated RBC % (a uto) 0 % Nucleated RBCs # 0.0 /100WBC Sodium 136 (136-145) mmol/L Potassium 4.1 (3.5-5.1) mmol/L Chloride 99 (98-107) mmol/L Carbon Dioxide 21 L (22-29) mmol/L Anion Gap 20.1 H (5-19) BUN 12 (6-20) mg/dL Creatinine 0.6 (0.5-0.9) mg/dL GFR Calculation 116.6 (90-130) mL/min Glucose 112 (65-115) mg/dL Calculated Osmolal ity 283 L (285-295) mOsm/k g Calcium 9.0 (8.5-10.5) mg/dL Total Bilirubin 0.2 (0.15-1.2) mg/dL AST 20 (0-32) U/L ALT 15 (0-33) U/L Alkaline Phosphata se 92 (35-105) IU/L Total Protein 8.1 (6.6-8.7) g/dL Albumin 4.8 (3.5-5.2) g/dL Globulin 3.3 (1.3-4.6) g/dL HCG, Qual Negative (Negative) Imaging Data^: CT Head: Radiologist's impression: [facility] [address] [place] [address]. [place] [address] CT Scan Report Signed Patient: Dee Dee Hall Unit #: [id number] : 1990 Age/Sex: 30 / F ADM Date: 12/07/20 Loc: ER Room/Bed: Attending Dr: Ordering Provider/Ordering MD: Mason Roach MD Date of Service: 12/07/20 Procedure(s): CT head wo con* [id number] Accession Number(s): [id number] Report Number: [id number] PROCEDURE INFORMATION: Exam: CT Head Without Contrast Exam date and time: 12/07/2020 11:25 PM Age: 30 years old Clinical indication: Other: Seizure. ; Prior surgery; Surgery type: [place] hole surgery. ; Patient HX: Seizure with LUNA. History of stroke in 2019. TECHNIQUE: Imaging protocol: Computed tomography of the head without contrast. Radiation optimization: All CT scans at this facility use at least one of these dose optimization techniques: automated exposure control; mA and/or kV adjustment per patient size (includes targeted exams where dose is matched to clinical indication); or iterative reconstruction. COMPARISON: 1. CT head wo con* [id number] 2020-04-14 20:[address] head wo con* [id number] 2020-04-01 20:33 RADIATION DOSE METRICS: Total DLP (mGy-cm): 778.64 FINDINGS: Brain: Unchanged right parietal encephalomalacia. Cerebral ventricles: No ventriculomegaly. Paranasal sinuses: Large right maxillary sinus mucous retention cyst. Mastoid air cells: Visualized mastoid air cells are well aerated. Bones/joints: Right parietal craniotomy. Soft tissues: Unremarkable. CT/CT head wo con* [id number] IMPRESSION: 1. No interval change. 2. Unchanged right parietal encephalomalacia. Other CT: Radiologist's impression: [facility] [address] [place] [address]. [place] [address] CT Scan Report Signed Patient: Dee Dee Hall Unit #: [id number] : 1990 Age/Sex: 30 / F ADM Date: 12/07/20 Loc: ER Room/Bed: Attending Dr: Ordering Provider/Ordering MD: Mason Roach MD Date of Service: 12/07/20 Procedure(s): CT angio headneck* [id number] Accession Number(s): [id number] Report Number: [id number] PROCEDURE INFORMATION: Exam: CT Angiography Head With Contrast, Arteriography Exam date and time: 12/07/2020 11:25 PM Age: 30 years old Clinical indication: Other: Seizure. ; Prior surgery; Surgery type: [place] hole surgery; Patient HX: Seizure with headache. History of stroke in 2019. TECHNIQUE: Imaging protocol: Computed tomography angiography of the head with contrast. Exam focused on the arteries. 3D rendering (Not supervised by radiologist): MIP and/or 3D reconstructed images were created by the technologist. Radiation optimization: All CT scans at this facility use at least one of these dose optimization techniques: automated exposure control; mA and/or kV adjustment per patient size (includes targeted exams where dose is matched to clinical indication); or iterative reconstruction. Contrast material: OMNI 350; Contrast volume: 95 ml; Contrast route: INTRAVENOUS (IV); COMPARISON: 1. CT head wo con* [id number] 2020-12-07 23:[address] head wo con* [id number] 2020-04-14 20:45 RADIATION DOSE METRICS: Total DLP (mGy-cm): 1262.85 FINDINGS: ANTERIOR CIRCULATION: Right internal carotid artery: Question mild narrowing of the right petrous ICA. Right middle cerebral artery: Small caliber right MCA. Right anterior cerebral artery: Hypoplastic right IJEOMA A1 segment. Small caliber right IJEOMA. Anterior communicating artery: Moderate anterior communicating artery. Left internal carotid artery: Unremarkable. Intracranial segment is patent with no significant stenosis. No aneurysm. Left middle cerebral artery: Unremarkable. No occlusion or significant stenosis. No aneurysm. Left anterior cerebral artery: Unremarkable. No occlusion or significant stenosis. No aneurysm. POSTERIOR CIRCULATION: Right vertebral artery: Unremarkable. No occlusion or significant stenosis. No aneurysm. Left vertebral artery: Unremarkable. No occlusion or significant stenosis. No aneurysm. Basilar artery: Persistent left trigeminal artery. Right posterior cerebral artery: Patent right ANIME ARTIST. Left posterior cerebral artery: Patent left ANIME ARTIST. Veins: The visualized deep and superficial dural venous sinuses and cortical veins are patent. Brain: Unchanged low attenuation in the right parietal lobe frontal region. Cerebral ventricles: No ventriculomegaly. Bones/joints: Previous right parietal craniotomy. Soft tissues: Unremarkable. Paranasal sinuses: Right maxillary sinus large mucous retention cyst. IMPRESSION: Small caliber right MCA. Small caliber right IJEOMA. Question mild narrowing of the right petrous ICA. Correlate for the possibility of vasospasm or vasculitis. PROCEDURE INFORMATION: Exam: CT Angiography Neck With Contrast Exam date and time: 12/07/2020 11:25 PM Age: 30 years old Clinical indication: Other: Seizure. ; Prior surgery; Surgery type: [place] hole surgery; Patient HX: Seizure with headache. History of stroke in 2019. TECHNIQUE: Imaging protocol: Computed tomography angiography of the neck with contrast. 3D rendering (Not supervised by radiologist): MIP and/or 3D reconstructed images were created by the technologist. Radiation optimization: All CT scans at this facility use at least one of these dose optimization techniques: automated exposure control; mA and/or kV adjustment per patient size (includes targeted exams where dose is matched to clinical indication); or iterative reconstruction. Contrast material: OMNI 350; Contrast volume: 95 ml; Contrast route: INTRAVENOUS (IV); COMPARISON: 1. CT head wo con* [id number] 2020-12-07 23:[address] head wo con* [id number] 2020-04-14 20:45 RADIATION DOSE METRICS: Total DLP (mGy-cm): 1262.85 FINDINGS: Right common carotid artery: No stenosis. No dissection or occlusion. Right internal carotid artery: No stenosis of the extracranial segment. No dissection or occlusion. Right external carotid artery: No occlusion or stenosis of the origin. Left common carotid artery: No stenosis. No dissection or occlusion. Left internal carotid artery: No stenosis of the extracranial segment. No dissection or occlusion. Left external carotid artery: No occlusion or stenosis of the origin. Right vertebral artery: No stenosis. No dissection or occlusion. Left vertebral artery: No stenosis. No dissection or occlusion. Soft tissues: Normal. No significant soft tissue swelling. Bones/joints: No acute fracture. CT/CT angio headneck* [id number] IMPRESSION: No stenosis or occlusion. REFERENCES: NASCET CRITERIA. The degree of internal carotid artery stenosis is based on NASCET criteria. Normal is no stenosis. Mild is less than 50% stenosis. Moderate is 50-69% stenosis. Severe is 70% to 99% stenosis. Total occlusion is no detectable patent lumen. 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
[2020-12-07 23:31] LABS: Basophils % 0.3 %; Eosinophils # 0.4 10^3/uL (0.0-0.8); Eosinophils % 4.1 %; Hematocrit 38.6 % (37.0-47.0); Hemoglobin 12.6 g/dL (11.5-15.3); Lymphocytes # 2.4 10^3/uL (0.8-4.8); Lymphocytes % 26.3 %; Mean Corpuscular HGB Conc 32.6 g/dL (30.0-36.0); Mean Corpuscular Hemoglobin 27.9 pg (28.0-34.0); Mean Corpuscular Volume 85.4 fL (81-99); Mean Platelet Volume 12.1 fL (7.4-10.4); Monocytes # 0.5 10^3/uL (0.2-0.9); Monocytes % 5.7 %; Neutrophils # 5.84 10^3/uL (1.8-7.7); Neutrophils % 63.2 %; Nucleated Red Blood Cells % 0 %; Platelet Count 245 10^3/cmm (130-400); Red Blood Count 4.52 10^6/uL (4.1-5.3); Red Cell Distribution Width 12.2 % (12.1-15.1); White Blood Count 9.3 10^3/uL (4.0-10.0)
[2020-12-07 23:35] LABS: HCG, Serum Qual Negative (Negative)
[2020-12-07 23:41] LABS: Alanine Aminotransferase 15 U/L (0-33); Albumin Level 4.8 g/dL (3.5-5.2); Alkaline Phosphatase 92 IU/L (35-105); Blood Urea Nitrogen 12 mg/dL (6-20); Carbon Dioxide 21 mmol/L (22-29); Chloride 99 mmol/L (98-107); Creatinine Clr Calc Pharmacy 136.5395; Globulin 3.3 g/dL (1.3-4.6); Glomerular Filtration Rate 116.6 mL/min (90-130); Glucose 112 mg/dL (65-115); Osmolality Calculated 283 mOsm/kg (285-295); Sodium 136 mmol/L (136-145); Total Bilirubin 0.2 mg/dL (0.15-1.2); Total Protein 8.1 g/dL (6.6-8.7)
[2020-12-07] MEDS: iohexol 350 mg/mL 100 mL Btl IV (23:41)
[2020-12-07 23:47] LABS: Anion Gap 20.1 (5-19); Aspartate Amino Transferase 20 U/L (0-32); Potassium 4.1 mmol/L (3.5-5.1)
[2020-12-08 00:35] VITALS: RESP 18; O2SAT 99
[2020-12-08] MEDS: ondansetron 2 mg/ML SDV 2 mL 4 MG IVP (00:35)
[2020-12-08] MEDS: morphine 4 mg/mL SDV 1 mL IVP (00:35)
[2020-12-08 02:23] VITALS: BP 105/62; PULSE 72; RESP 16; O2SAT 97
== END 2020-12-08 01:30 | disposition home or self-care (01) ==
PROVIDERS: Emergency Provider Emergency Medicine
DX: G40.409 Other generalized epilepsy and epileptic syndromes, not intractable, without status epilepticus (principal)
CPT/HCPCS: 70450; 70496; 70498; 80053; 84703; 85025; 96374; 96375; 99283; J1953; J2270; J2405; Q9967

== ENCOUNTER 2021-01-27 22:26 | Emergency (ER) | payer BC, MEDICAID, SELFPAY ==
--- NOTE | 2021-01-27 22:28 | XRR_ITS ---
PROCEDURE INFORMATION: Exam: XR Chest Exam date and time: 01/27/2021 10:28 PM Age: 30 years old Clinical indication: Shortness of breath; Additional info: SOB TECHNIQUE: Imaging protocol: XR of the chest. Views: 2 views. COMPARISON: CR XR chest 1V portable [id number] 04/01/2020 9:01 PM FINDINGS: Lungs: Bibasilar atelectasis versus minimal infiltrate. Pleural spaces: Unremarkable. No pleural effusion. No pneumothorax. Heart/Mediastinum: Unremarkable. No cardiomegaly. Bones/joints: Unremarkable. XR/XR chest 2V* [id number] IMPRESSION: Bibasilar atelectasis versus minimal infiltrate.
[2021-01-27 22:39] VITALS: BP 130/75; PULSE 90; RESP 18; TEMP 36.7; O2SAT 100; BMI 28.3
--- NOTE | 2021-01-27 22:52 | ED_ITS ---
HPI - Back Pain/Injury General: Chief Complaint: Back Pain/Injury Stated Complaint: SOB Pain in Back Time Seen by Provider: 01/27/21 22:47 History of Present Illness: HPI Narrative: Patient is a 30-year-old female comes to the ED with back pain. Patient says this morning she woke up with pain in her mid back region. She denies any injury or trauma to cause back pain. She does admit to working out more over the past several weeks. She feels like she might of strained or pulled muscle back. Says it hurts whenever she takes a deep breath. She says the pain radiates around to the lower right part of her chest. She has localized tenderness on mid back where her pain comes from. Says any cordlike movements cause worsening pain. She is taken some Tylenol earlier today to help with pain. Denies any other symptoms. Associated symptoms: Deny abdominal pain, chills, dysuria, fatigue, fever(s), hematuria, nausea or vomiting Review of Systems Const: Denies: fever(s), chills or fatigue Eyes: Denies: change in vision or eye discomfort ENMT: Denies: throat pain, odynophagia, nasal discharge or nasal congestion Card: Denies: chest pain, palpitations, edema, swelling of feet/ankles, dyspnea on exertion or orthopnea Resp: Denies: dyspnea, productive cough or non-productive cough GI: Denies: abdominal pain, nausea, vomiting, diarrhea, constipation or hematochezia : Denies: flank pain, dysuria or hematuria Musc: Reports: back pain; Denies: neck pain or extremity swelling Skin/Breast: Denies: rash or new lesions Neuro: Denies: headache(s), numbness in extremities or weakness in extremities [facility] ED PFSH: Medical History Intracranial hemorrhage Surgical History S/P brain surgery Social History Smoking and tobacco status: never smoked Alcohol intake: never Female Reproductive History: Date of last menstrual period: 01/27/21 Physical Exam Const: COMMON NORMALS: no acute distress, patient oriented x3 and alert GENERAL APPEARANCE: cooperative and comfortable HENMT: COMMON NORMALS: normocephalic HEAD & SCALP: normocephalic MOUTH: Normal oral and palatal mucosa present THROAT: posterior oropharynx normal and uvula midline Neck/C-Spine: COMMON NORMALS: supple GENERAL: Yes normal visual inspection Resp: COMMON NORMALS: normal respiratory effort, No retractions, No use of accessory muscles and clear to auscultation bilaterally AUSCULTATION: clear to auscultation bilaterally Cardio: COMMON NORMALS: regular rate, regular rhythm, S1 normal heart sound present, S2 normal heart sound present, No gallops present (Cardio), No clicks present (Cardio), No murmurs present (Cardio) and Peripheral pulses 2+ t hroughout RATE: regular rate RHYTHM: regular rhythm HEART SOUNDS: S1 normal heart sound present and S2 normal heart sound present PERIPHERAL PULSES: Peripheral pulses 2+ throughout GI: COMMON NORMALS: Normal to inspection, nondistended, normoactive bowel sounds present, Soft to palpation, non-tender and no masses PALPATION: Yes Soft to palpation : COMMON NORMALS: Yes no CVA tenderness BLADDER/KIDNEY EXAM: Yes no CVA tenderness Back/Pelvis: COMMON NORMALS: no CVA tenderness THORACIC SPINE/UPPER BACK: Yes paraspinal muscle tenderness Thoracic paraspinal muscle tenderness: right Right thoracic paraspinal muscle tenderness: T5, T6 and T7 and Yes other soft tissue findings Other thoracic soft tissue findings laterality: right Right other thoracic soft tissue findings details: tenderness (Inferior and medial to right scapular region.) Extremity: COMMON NORMALS: normal to inspection Neuro: COMMON NORMALS: patient oriented x3 and moves all extremities SENSORIUM/ORIENTATION: Yes alert Skin: GENERAL SKIN EXAM: dry skin Course Vital Signs: Vital signs: Vital Signs Temperature 98.5 F 01/28/21 00:16 Pulse Rate 67 01/28/21 00:16 Respiratory Rate 16 01/28/21 00:16 Blood Pressure 124/75 01/28/21 00:16 Pulse Oximetry 98 01/28/21 00:16 MDM - Back Pain/Injury MDM Narrative: Medical decision making narrative: Patient is a 30-year-old female comes to the ED with back pain. Patient says she woke up with mid back pain. She says she has been working out more recently. Pain is localized on the right mid back region. Exam shows a nontoxic and healthy-appearing a patient that has point soft tissue tenderness on the right thoracic back just inferior to the scapular region. She has pain with certain core movements. Exam finds suggestive of a muscular pain due to possible strain. She denies any cough or chest pain. Chest x-ray shows some bibasilar atelectasis. Patient was given a dose of Toradol and Norflex while here in the ED. She was discharged home on cyclobenzaprine. Return to ED precautions given. Follow-up with PCP in 7 to 10 days for reevaluation. Patient stood agree with plan. Imaging Data^: CXR: Attestation: I personally reviewed and interpreted this imaging study as follows: Radiologist's impression: [address] [place] [address] XRay Report Signed Patient: Dee Dee Hall Unit #: [id number] : 1990 Age/Sex: 30 / F ADM Date: 01/27/21 Loc: ER Room/Bed: Attending Dr: Ordering Provider/Ordering MD: Mason Roach MD Date of Service: 01/27/21 Procedure(s): XR chest 2V* [id number] Accession Number(s): [id number] Report Number: [id number] PROCEDURE INFORMATION: Exam: XR Chest Exam date and time: 01/27/2021 10:28 PM Age: 30 years old Clinical indication: Shortness of breath; Additional info: SOB TECHNIQUE: Imaging protocol: XR of the chest. Views: 2 views. COMPARISON: CR XR chest 1V portable [id number] 04/01/2020 9:01 PM FINDINGS: Lungs: Bibasilar atelectasis versus minimal infiltrate. Pleural spaces: Unremarkable. No pleural effusion. No pneumothorax. Heart/Mediastinum: Unremarkable. No cardiomegaly. Bones/joints: Unremarkable. XR/XR chest 2V* [id number] IMPRESSION: Bibasilar atelectasis versus minimal infiltrate. Dictated By: Charles Ross MD Signed By: Charles Ross MD Signed Date/Time: 01/28/2118 DD/ Discharge Plan Discharge Patient Disposition: Home Clinical Impression: Muscle strain of right upper back Qualifiers: Encounter type: initial encounter Qualified Code(s): S29.012A - Strain of muscle and tendon of back wall of thorax, initial encounter Condition: Stable Prescriptions: New cyclobenzaprine 7.5 mg tablet 7.5 mg PO BID PRN (Reason: muscle spasm) Qty: 15 RF: 0 No Action Keppra 750 mg tablet 750 mg PO BID Qty: 60 RF: 0 Discharge Orders: Discharge ED (Routine); Ordered 01/28/21 Ordered By: Clayton Deal Discharge Diet: Regular Discharge Activity: Increase activity as tolerated Patient Instructions: Muscle Strain (ED) Activity Restrictions/Additional Instructions: Follow-up with medical provider as directed in 7 days for reevaluation. Apply cold pack on sore muscle area on back and massage muscle daily to help with symptoms. Stretch back as well daily. Take medications as prescribed. The muscle relaxer can cause some drowsiness so take at night before bed. Take [id number] Tylenol or ibuprofen for pain. Return to the ER or your medical provider if condition worsens. Please read and understand discharge instructions. Thank you for choosing [facility] for your healthcare needs today. Please realize this is an emergency room and that we are providing you with a medical screening exam and this may not be complete and all inclusive of all the testing and or work up that you may need to determine your ailment or severity of your illness. It is very important that you follow up as instructed or that you return to the Emergency Department should you have concerns or if your condition changes or worsens in any way. Coding Level of Care Code ED [employer] Developer for Antonia Moncada Exam Comprehensive
[2021-01-27] MEDS: ketorolac 60 mg/2 mL INJ IM (23:33)
[2021-01-27] MEDS: orphenadrine 30 mg/mL Inj 2 mL 60 MG IM (23:35)
[2021-01-28 00:16] VITALS: BP 124/75; PULSE 67; RESP 16; TEMP 36.9; O2SAT 98
== END 2021-01-28 00:31 | disposition home or self-care (01) ==
PROVIDERS: Emergency Provider Physician Assistant
DX: S29.012A Strain of muscle and tendon of back wall of thorax, initial encounter (principal); X58.XXXA Exposure to other specified factors, initial encounter
CPT/HCPCS: 71046; 96372; 99283; J1885; J2360